=== PATIENT | female | born 1945 ===

== ENCOUNTER 2018-12-13 09:15 | Inpatient (IN) | payer OTHER ==
[~2018-12-13] VITALS: Ht 157.5 cm; Wt 90.7 kg
[2018-12-13] MEDS ORDERED: LOSARTAN-HCTZ1 EAC1 PO (11:20)
[2018-12-21] MEDS ORDERED: CEFADROXIL500 MG PO (17:14)
[2018-12-21] MEDS ORDERED: ELIQUIS2.5 MG PO (17:14)
[2018-12-21] MEDS ORDERED: PERCOCET 5-3251 EACH PO (17:14)
== END 2018-12-21 22:54 | DRG 470 ==
LOC: SURG 12-19 06:00 → O/R 12-19 06:00 → SURH 12-19 09:15 → SURG 12-19 13:25
PROVIDERS: ADMIT Orthopaedic Surgery
PROC: 0MNP0ZZ Release Left Knee Bursa and Ligament, Open Approach (ICD-10-PCS; 2018-12-19)
PROC: 0SRD0J9 Replacement of Left Knee Joint with Synthetic Substitute, Cemented, Open Approach (ICD-10-PCS; principal; 2018-12-19 09:45)
DX: M17.12 Unilateral primary osteoarthritis, left knee (principal); D62 Acute posthemorrhagic anemia; I10 Essential (primary) hypertension; M81.0 Age-related osteoporosis without current pathological fracture; E66.8 Other obesity